=== PATIENT | female | born 1990 | race African-American/Black ===

== ENCOUNTER 2018-06-28 07:00 | Inpatient (IN) | payer OTHER ==
[2018-06-28] MEDS: ELECTROLYTE-148 SOLN 1,000 ML IV SCH (07:20)
[2018-06-28] MEDS ORDERED: AMPICILLIN SODIUM 2 GM VIAL ONE (07:43)
--- NOTE | 2018-06-28 08:16 | HP ---
Past Medical History - Admission Chief Complaint: SROM History of Present Illness: 27yo @ 38.5wks here with SROM @ 6AM, prior C/S, desires ERCS +LOF. +FM. No VB/ctx. Preg c/b 2 prior C/S, late and limited PNC History Source: Patient - Past Medical History ...EDC by Dates: 07/07/18 Heme/Onc: Yes: Anemia Infectious Disease: No: AIDS, C-Diff, Herpes Zoster, HIV, MRSA, STD's, Tuberculosis, VREF, Other Psych: No: Addictions, Anxiety, Bipolar, Depression, Panic, Psychosis, Schizophrenia, Other Musculoskeletal: No: Bursitis, Chronic low back pain, Hemiparesis, Hemiplegia, Osteoarthritis, Paraplegia, Other ENT: No: Allergic Rhinitis, Sinusitis, Other Endocrine: No: Wilton's Disease, Apex's Disease, Diabetes Insipidus, Diabetes Mellitus, Hyperparathyroidism, Hyperthyroidism, Hypothyroidism, Osteopenia, SIADH, Other Dermatology: No: Basal Cell, Cellulitis, Eczema, Melanoma, Psoriasis, Squamous Cell, Other - Past Surgical History Past Surgical History: Yes: Hx Myomectomy: No Hx Transabdominal Cerclage: No - Smoking History Smoking history: Never smoked Have you smoked in the past 12 months: No - Alcohol/Substance Use Hx Alcohol Use: No History of Substance Use: reports: None - Social History Usual Living Arrangement: Yes: With Spouse History of Recent Travel: No Home Medications - Allergies Allergies/Adverse Reactions: Allergies Allergy/AdvReac Type Severity Reaction Status Date / Time No Known Allergies Allergy Verified 06/28/18 08:41 - Home Medications Home Medications: Ambulatory Orders Vits96/Iron Fum/Folic [ Tablet] 1 tab PO DAILY 06/28/18 Review of Systems - Review of Systems Constitutional: denies: No Symptoms, Chills, Diaphoresis, Fever, Lethargy, Loss of Appetite, Malaise, Night Sweats, Unintentional Wgt. Loss, Weakness, Other Cardiovascular: denies: No Symptoms, Chest Pain, Edema, Palpitations, Shortness of Breath, Other Respiratory: denies: No Symptoms, Cough, Exercise Intolerance, Hemoptysis, Orthopnea, PND, Snoring, SOB, SOB on Exertion, Wheezing, Other Gastrointestinal: denies: No Symptoms, Abdominal Pain, Bloating, Constipation, Diarrhea, Dysphagia, Indigestion, Melena, Nausea, Rectal Bleeding, Vomiting, Vomiting Blood, Other Physical Exam - Maternity Constitutional: Yes: Well Nourished, No Distress, Calm Eyes: Yes: WNL, Conjunctiva Clear, EOM Intact HENT: Yes: WNL, Atraumatic, Normocephalic Neck: Yes: WNL, Supple, Trachea Midline Cardiovascular: Yes: WNL, Regular Rate and Rhythm Breast(s): Yes: WNL - Abdominal Exam/OB Number of Fetuses: Single Presentation: Vertex Contractions: Yes Regularity: Irregular Intensity: Mild Category: I Accelerations: Non-Uniform Decelerations: None - Vaginal Exam/OB Vaginal Bleediing: No Speculum Exam: No Dilatation (cm): 1 Effacement (%): 0 Amniotic Membrane Status: Ruptured Nitrazine Test: Positive Amniotic Fluid: Yes: Clear Presentation: Vertex/Position - Physical Exam Edema: No Problem List - Problems (1) SROM (spontaneous rupture of membranes) Code(s): KFN5250 - (2) H/O: Code(s): Z98.891 - HISTORY OF UTERINE SCAR FROM PREVIOUS SURGERY Assessment/Plan 27yo @ 38.5wks here with SROM, 2 prior C/S Admit to L&D NPO, IVFs Ancef SCDs Risk of bleeding, infection, injury to bladder/bowel/adnexa and vessels. Desires BTL. Consents signed Neda Mari MD
[2018-06-28 08:38] VITALS: BMI 30.9
[2018-06-28 08:40] LABS: BASO % 0.3 % (0-2.0); EOS % 0.7 % (0-4.5); HEMATOCRIT 32.5 % (32.4-45.2); HEMOGLOBIN 10.9 GM/dL (10.7-15.3); LYMPH % 26.1 % (8-40); MCH 29.9 pg (25.7-33.7); MCHC 33.6 g/dl (32.0-36.0); MEAN PLT VOLUME 9.3 fl (7.5-11.1); MONO % 11.4 % (3.8-10.2); NEUT % 61.5 % (42.8-82.8); PLATELET COUNT 146 K/MM3 (134-434); RBC 3.65 M/mm3 (3.60-5.2); RDW 15.8 % (11.6-15.6); WHITE BLOOD COUNT 4.9 K/mm3 (4.0-10.0)
[2018-06-28] MEDS: CITRIC ACID/SODIUM CITRATE 30 ML UNIT-DOSE CUP PO ONE ×2 (08:45→10:00)
[2018-06-28 09:04] LABS: INR 0.94 (0.83-1.09); PROTHROMBIN TIME (PATIENT) 11.1 SEC (9.7-13.0)
[2018-06-28 09:06] LABS: ACTIVATED PTT 29.9 SECONDS (25.2-36.5)
[2018-06-28 09:13] LABS: ANION GAP 7 MMOL/L (8-16); BLOOD UREA NITROGEN 6 mg/dL (7-18); CALCIUM 8.3 mg/dL (8.5-10.1); CHLORIDE 106 mmol/L (98-107); CO2 26 mmol/L (21-32); CREATININE 0.5 mg/dL (0.55-1.3); GLUCOSE,RANDOM 73 mg/dL (74-106); POTASSIUM 3.7 mmol/L (3.5-5.1); SODIUM 140 mmol/L (136-145)
[2018-06-28] MEDS ORDERED: morphine SULFATE/Preservative Free 0.5 MG/ML (1cc Syringe) EP ONE (09:34)
[2018-06-28] MEDS ORDERED: ONDANSETRON 4 MG/2 ML VIAL IVPUSH PRN (09:34)
[2018-06-28] MEDS ORDERED: morphine SULFATE/Preservative Free 0.5 MG/ML (1cc Syringe) ONE (10:28)
[2018-06-28] MEDS ORDERED: OXYTOCIN 20 UNITS in 0.9% NS 20 UNIT/1,000 ML INFUS.BAG IV ONE ×2 (10:29→13:30)
[2018-06-28] MEDS ORDERED: ceFAZolin SODIUM 1 GM VIAL ONE (10:29)
[2018-06-28] MEDS ORDERED: PHENYLEPHRINE HCL 10 MG/1 ML SINGLE DOSE VIAL ONE (10:49)
[2018-06-28] MEDS ORDERED: OXYTOCIN 10 UNITS/ML VIAL ONE (11:03)
--- NOTE | 2018-06-28 11:44 | OP ---
Operative Note - Note: Operative Date: 06/28/18 Pre-Operative Diagnosis: 38 week , Prior C/S, SROM, desires elective RLTCS, desires Permanent Sterilization Operation: Repeat Low Transverse , Bilateral Tubal Ligation Findings: VMI, cephalic, MCKENNA, no nuchal, no meconium. Weight 8.10lbs, Apgars 9/9. Normal tubes and ovaries Post-Operative Diagnosis: Same as Pre-op Surgeon: Kymberly Mari Rfid Analyst: Cheli Kwong Anesthesiologist/MASH FILTER PRESS OPERATOR: Luis Baltazar Anesthesia: Spinal Estimated Blood Loss (mls): 600 Drains, Volume Out (mls): 100 Operative Report Dictated: Yes
[2018-06-28] MEDS ORDERED: METHYLERGONOVINE MALEATE 0.2 MG/1 ML AMP IM PRN (11:45)
[2018-06-28] MEDS ORDERED: IBUPROFEN 800 MG/8 ML IJ IVPB PRN (11:45)
[2018-06-28] MEDS ORDERED: WITCH HAZEL 50% (TUCKS) 40 PAD/JAR PAD TP PRN (11:45)
--- NOTE | 2018-06-28 12:43 | SURG ---
Surgery Superintendent Landfill Operations Note Superintendent Landfill Operations: Cheli Kwong PA-C Date of Service: 06/28/18 Diagnosis: 38 week , Prior C/S, SROM, desires elective RLTCS, desires Permanent Sterilization Procedure: Repeat Low Transverse , Bilateral Tubal Ligation I was present for the entirety of the operative procedure. For further detail, please refer to operative report. Visit type - Case Type Case Type: Scheduled - Emergency Emergency Visit: Yes ED Registration Date: 06/28/18 Care time: The patient presented to the Emergency Department on the above date and was hospitalized for further evaluation of their emergent condition. - New patient This patient is new to me today: Yes Date on this admission: 06/28/18
[2018-06-28] MEDS: OXYTOCIN 20 UNITS in 0.9% NS 20 UNIT/1,000 ML INFUS.BAG IV SCH (13:45)
[2018-06-28 13:58] LABS: COCAINE, UR NEGATIVE ng/ml (CUTOFF=300); METHADONE, UR NEGATIVE ng/ml (CUTOFF=300); OPIATES, URI NEGATIVE ng/ml (CUTOFF=300); PHENCYCLIDINE,URINE NEGATIVE ng/ml (CUTOFF=25); URINE AMPHETAMINES NEGATIVE ng/ml (CUTOFF=500); URINE BARBITURATES NEGATIVE ng/ml (CUTOFF=200); URINE BENZODIAZEPINES NEGATIVE ng/ml (CUTOFF=200)
[2018-06-28] MEDS ORDERED: AMPICILLIN - 2 GM in SODIUM CHLORIDE 100 ML IVPB ONE (14:28)
--- NOTE | 2018-06-28 22:59 | OP ---
DATE OF OPERATION: 06/28/2018 PREOPERATIVE DIAGNOSES: [id number] , prior section, spontaneous rupture of membranes, desires elective repeat section, desires permanent sterilization. POSTOPERATIVE DIAGNOSES: [id number] , prior section, spontaneous rupture of membranes, desires elective repeat section, desires permanent sterilization. PROCEDURE: Repeat low transverse section, bilateral tubal ligation. SURGEON: Kymberly Mari MD DIAGRAMMER AND SEAMER: Cheli Kwong ANESTHESIA: Luis Baltazar MD ANESTHESIA TYPE: Spinal. ESTIMATED BLOOD LOSS: 600. INTRAVENOUS FLUIDS: Per Anesthesia record URINE OUTPUT: 100 mL of clear urine at the end of the procedure. FINDINGS: Viable male , cephalic presentation, MCKENNA. No nuchal, no meconium. Weight 8 pounds 10 ounces. Apgars 9, 9. Normal tubes and ovaries bilaterally. NATURE OF THE PROCEDURE: After the appropriate consents were signed, the patient was taken to the operating room, where spinal anesthesia was administered. She was prepped and draped in the normal sterile fashion. A Bain catheter had been inserted prior to entering into the operating room. Timeout was performed, confirming correct patient and procedure. A scalpel was used to make a Pfannenstiel incision near the patient's prior incision, which was noted to be keloided. The incision was carried through to the underlying layers until the fascia was nicked in the midline. The fascia was then extended laterally with the Lawson scissors. The inferior aspect of the fascia was grasped with the Elissa clamps, tented upwards, and the rectus muscles dissected off with the Lawson scissors. Attention was then paid to the superior aspect, which was tented upwards and the rectus muscles dissected off with a knife secondary to dense adhesions. The rectus muscles were grasped in the midline with the Allis clamps, tented upwards, and the rectus muscles in the midline with the scalpel. The peritoneum was then entered bluntly. There was insufficient space to accommodate delivery and the rectus muscles had to be incised in a Maylard fashion with the cautery device to accommodate delivery. The bladder blade was then inserted. The uterus was incised in a low-transverse fashion. Clear amniotic fluid was noted. The 's head was delivered without difficulty, as were the remaining shoulders and body. The cord was clamped and cut. The infant was handed off to the awaiting Pediatric Staff. The placenta was removed manually. The uterus was cleared of all clot and debris. The uterus was then exteriorized. The hysterotomy was closed in a single imbricating layer with a 1-0 Vicryl with good hemostasis. Attention was then paid to the adnexa for tubal sterilization. Using a Mary Lou, the patient's right fallopian tube was grasped at the isthmus portion and carried through to the fimbriated edges, which were noted to be normal. Back at the isthmus portion, the Mary Lou was replaced. Using a 0 plain, the fallopian tube was suture ligated in a modified Randal fashion. The tubal stump was removed with the Metzenbaum scissors. The tubal site was then cauterized with the Bovie with good hemostasis noted. Attention was then paid to the left fallopian tube, which was ligated in a similar fashion. The right fallopian tube was reinspected and noted to be hemostatic. The left fallopian tube stump was noted to have a small area of bleeding. This was made hemostatic with cautery and an additional 0 plain tie. An attempt was made to place the uterus back into the abdominal cavity; however, an area on the right fundal right area of the uterus was noted to be bleeding. Despite cautery, no hemostasis was achieved. Using additional 0 Vicryl sutures in several [id number], bleeding was made hemostatic. The uterus was then returned to the abdominal cavity. Both fallopian tube stumps were reinspected and noted to be hemostatic. The fundal portion of the uterus was also noted to be hemostatic. The hysterotomy was reinspected and noted to be hemostatic. The bladder blade was then removed. The fascia was closed with a 0 Vicryl. The subcutaneous tissue was closed with a 2-0 plain. The patient's keloid was then removed by grasping the keloid incision, elevating it, and cutting along the superior borders. The skin was then closed with a 4-0 Biosyn. Appropriate bandages were placed. All sponge, lap, needle counts were correct x3. The patient received Ancef at the start of the procedure. She was taken from the operating room to the recovery area in stable condition. MD MICHELLE MAYNARD/[id number]
[2018-06-28] MEDS: FERROUS SO4 325 MG TABLET (FP) PO SCH (23:18)
[2018-06-29 07:27] LABS: BASO % 0.3 % (0-2.0); EOS % 0.6 % (0-4.5); HEMATOCRIT 32.8 % (32.4-45.2); HEMOGLOBIN 11.1 GM/dL (10.7-15.3); LYMPH % 12.9 % (8-40); MCH 29.9 pg (25.7-33.7); MCHC 33.7 g/dl (32.0-36.0); MEAN CELL VOLUME 88.9 fl (80-96); MEAN PLT VOLUME 9.5 fl (7.5-11.1); MONO % 9.7 % (3.8-10.2); NEUT % 76.5 % (42.8-82.8); PLATELET COUNT 137 K/MM3 (134-434); RBC 3.69 M/mm3 (3.60-5.2); RDW 16.1 % (11.6-15.6); WHITE BLOOD COUNT 6.8 K/mm3 (4.0-10.0)
[2018-06-29] MEDS: FERROUS SO4 325 MG TABLET (FP) PO SCH ×2 (09:11→22:11)
[2018-06-29] MEDS: PRENATAL VITAMINS W/ FOLIC ACID TABLET (FP) PO SCH (09:12)
[2018-06-29] MEDS: ACETAMINOPHEN 325 MG TABLET (FP) PO PRN ×2 (11:05→19:45)
[2018-06-29] MEDS: IBUPROFEN 600 MG TABLET (FP) PO PRN ×2 (11:05→19:44)
[2018-06-29] MEDS ORDERED: BISACODYL 10 MG SUPP.RECT RC PRN (11:45)
--- NOTE | 2018-06-29 13:34 | PN ---
Progress Note (short form) - Note Progress Note: Anesthesia POD#1 S/P under Spinal A with Duramorph VSS,bearable pain,no N/V,legs are strong. Pat Colon MD.
--- NOTE | 2018-06-29 13:42 | PN ---
Post Progress Note - Subjective Subjective: sitting in the chair, comfortable Post Day: 1 Type of Delivery: Repeat C/S Vital Signs: Vital Signs Temperature 98.3 F 06/29/18 09:00 Pulse Rate 79 06/29/18 09:00 Respiratory Rate 20 06/29/18 13:00 Blood Pressure 113/67 06/29/18 09:00 O2 Sat by Pulse Oximetry (%) 100 06/28/18 13:00 Breast Exam: Yes: Soft Uterus: Yes: Fundus Firm Incision: Yes: Dressing dry and intact Abdomen/GI: Yes: Abdomen soft Lochia: Yes: Rubra Lochia, amount: Small Extremities: Yes: Calves non-tender Perineum: Yes: Intact - Labs Labs: CBC WBC 6.8 K/mm3 (4.0-10.0) 06/29/18 06:00 RBC 3.69 M/mm3 (3.60-5.2) 06/29/18 06:00 Hgb 11.1 GM/dL (10.7-15.3) 06/29/18 06:00 Hct 32.8 % (32.4-45.2) 06/29/18 06:00 MCV 88.9 fl (80-96) 06/29/18 06:00 MCH 29.9 pg (25.7-33.7) 06/29/18 06:00 MCHC 33.7 g/dl (32.0-36.0) 06/29/18 06:00 RDW 16.1 % (11.6-15.6) H 06/29/18 06:00 Plt Count 137 K/MM3 (134-434) 06/29/18 06:00 MPV 9.5 fl (7.5-11.1) 06/29/18 06:00 Absolute Neuts (auto) 5.2 K/mm3 (1.5-8.0) 06/29/18 06:00 Neutrophils % 76.5 % (42.8-82.8) D 06/29/18 06:00 Lymphocytes % 12.9 % (8-40) D 06/29/18 06:00 Monocytes % 9.7 % (3.8-10.2) 06/29/18 06:00 Eosinophils % 0.6 % (0-4.5) 06/29/18 06:00 Basophils % 0.3 % (0-2.0) 06/29/18 06:00 Nucleated RBC % 0 % (0-0) 06/29/18 06:00 Assessment/Plan oob reg diet pain control dc iv check labs
[2018-06-29] MEDS: SIMETHICONE 80 MG TAB.CHEW (FP) PO PRN (19:42)
[2018-06-29] MEDS: oxyCODONE HCL 5 MG TABLET PO PRN (19:43)
[2018-06-29] MEDS: SENNOSIDES/DOCUSATE COMBO (SENNA PLUS) TABLET (UD) PO PRN (22:12)
[2018-06-29] MEDS: ELECTROLYTE-148 SOLN 1,000 ML IV SCH (22:28)
[2018-06-29] MEDS: OXYTOCIN 20 UNITS in 0.9% NS 20 UNIT/1,000 ML INFUS.BAG IV SCH (22:28)
[2018-06-30] MEDS: oxyCODONE HCL 5 MG TABLET PO PRN ×3 (07:50→19:51)
[2018-06-30] MEDS: IBUPROFEN 600 MG TABLET (FP) PO PRN ×3 (07:50→19:52)
[2018-06-30] MEDS: SIMETHICONE 80 MG TAB.CHEW (FP) PO PRN ×2 (07:50→14:53)
[2018-06-30] MEDS: FERROUS SO4 325 MG TABLET (FP) PO SCH ×2 (09:43→21:09)
[2018-06-30] MEDS: PRENATAL VITAMINS W/ FOLIC ACID TABLET (FP) PO SCH (09:43)
[2018-06-30] MEDS: SENNOSIDES/DOCUSATE COMBO (SENNA PLUS) TABLET (UD) PO PRN (22:18)
[2018-07-01 07:48] LABS: BASO % 0.2 % (0-2.0); EOS % 1.4 % (0-4.5); HEMATOCRIT 27.9 % (32.4-45.2); HEMOGLOBIN 9.4 GM/dL (10.7-15.3); LYMPH % 24.8 % (8-40); MCH 29.8 pg (25.7-33.7); MCHC 33.5 g/dl (32.0-36.0); MEAN CELL VOLUME 88.8 fl (80-96); MEAN PLT VOLUME 9.5 fl (7.5-11.1); MONO % 9.5 % (3.8-10.2); NEUT % 64.1 % (42.8-82.8); PLATELET COUNT 156 K/MM3 (134-434); RBC 3.14 M/mm3 (3.60-5.2); RDW 15.7 % (11.6-15.6); WHITE BLOOD COUNT 5.5 K/mm3 (4.0-10.0)
--- NOTE | 2018-07-01 08:11 | DS ---
Physical Examination Vital Signs: Vital Signs Temperature 97.9 F 06/30/18 20:51 Pulse Rate 70 06/30/18 20:51 Respiratory Rate 19 06/30/18 20:51 Blood Pressure 114/69 06/30/18 20:51 O2 Sat by Pulse Oximetry (%) 100 06/30/18 20:51 Constitutional: Yes: Well Nourished, No Distress, Calm Eyes: Yes: WNL, Conjunctiva Clear, EOM Intact HENT: Yes: WNL, Atraumatic, Normocephalic Neck: Yes: WNL, Supple, Trachea Midline Cardiovascular: Yes: WNL, Regular Rate and Rhythm Respiratory: Yes: WNL, Regular, CTA Bilaterally Gastrointestinal: Yes: WNL, Normal Bowel Sounds Musculoskeletal: Yes: WNL Extremities: Yes: WNL Edema: No Integumentary: Yes: WNL Neurological: Yes: WNL, Alert, Oriented ...Motor Strength: WNL Psychiatric: Yes: WNL Labs: CBC, BMP 06/28/18 08:30 Discharge Summary Reason For Visit: LABOR Current Active Problems H/O: (Acute) SROM (spontaneous rupture of membranes) (Acute) Procedures: Principal: RLTCS, BTL Hospital Course: Patient presented with SROM at term She had a repeat and BTL Her course was unremarkable She met all milestones and was discharged home on POD#3 MEboni Mari MD Condition: Stable - Instructions Diet, Activity, Other Instructions: Regular Diet Referrals: Kymberly Mari MD [Staff Physician] - Disposition: HOME - Home Medications Comprehensive Discharge Medication List: Ambulatory Orders Vits96/Iron Fum/Folic [ Tablet] 1 tab PO DAILY 06/28/18 Ibuprofen [Motrin -] 600 mg PO QID PRN #28 tablet 06/30/18
[2018-07-01] MEDS: IBUPROFEN 600 MG TABLET (FP) PO PRN (09:49)
[2018-07-01] MEDS: PRENATAL VITAMINS W/ FOLIC ACID TABLET (FP) PO SCH (09:54)
[2018-07-01] MEDS: FERROUS SO4 325 MG TABLET (FP) PO SCH (09:54)
[2018-07-01] MEDS: oxyCODONE HCL 5 MG TABLET PO PRN (09:54)
[2018-07-01 10:15] VITALS: BP 109/71; PULSE 91; TEMP 98.6
--- NOTE | 2018-07-01 17:52 | PATH ---
Surgical Pathology Report Patient Name: JIGNESH SUAREZ [facility]. Rec. #: [id number] /Age/Gender: 1990 (Age: 27) / F Account: [id number] Location: [facility] OBS/CHEMISTRY TECHNOLOGIST Taken: 06/28/2018 Received: 06/29/2018 Reported: 07/01/2018 Physicians: Kymberly Mari Specimen(s) Received A: PLACENTA B: RIGHT FALLOPIAN TUBE C: LEFT FALLOPIAN TUBE Clinical History Gestation 39.2, previous x2, history of asthma Final Diagnosis A. PLACENTA, SECTION: 555 G THIRD TRIMESTER PLACENTA WITH TRIVASCULAR UMBILICAL CORD AND UNREMARKABLE PLACENTAL MEMBRANES. B. FALLOPIAN TUBE, RIGHT, PARTIAL EXCISION: FULL LUMINAL PORTION OF UNREMARKABLE FALLOPIAN TUBE. C. FALLOPIAN TUBE, LEFT, PARTIAL EXCISION: FULL LUMINAL PORTION OF UNREMARKABLE FALLOPIAN TUBE. Electronically Signed Sammi Antonio M.D. Gross Description A. The specimen is received fresh labeled placenta and is a 555 gram, 24.0 x 13.5 x 2.4 cm. placenta with attached membranes and umbilical cord. The attached membranes are cazares, translucent with focal opacities and insert marginally. The umbilical cord measures 46 cm. in length and averages 1.0 cm. in diameter. The cord inserts eccentrically, 5 cm. to the nearest margin. No true knots or strictures are identified. Cut surface of the umbilical cord reveals 3 vessels. The surface is ying-blue with minimal fibrin deposition and appropriate caliber vessels. The maternal surface is red-brown with focal defects. Sectioning reveals red-brown, spongy parenchyma. No lesions are identified. Power Reactor Supervisor sections are submitted in three cassettes as follows: 1- membrane rolls and umbilical cord; 2-3- full thickness sections of placenta. B. Received in formalin labeled "right tube fallopian," is a 1.5 cm in length portion of fallopian tube. No fimbria are present. The outer surface is cazares-garcia and smooth. Sectioning reveals an unremarkable lumen. Power Reactor Supervisor sections are submitted in one cassette. C. Received in formalin labeled "left tube fallopian," is a 0.7 cm in length portion of fallopian tube. No fimbria are present. The outer surface is cazares ying and smooth. Sectioning reveals an unremarkable lumen. The specimen is bisected and entirely submitted in one cassette. DL/06/30/2018 saudi06/30/2018
== END 2018-07-01 15:10 | disposition home or self-care (01) | DRG 540 ==
LOC: JLDR 07:00 → J3W 14:24
PROVIDERS: ADMIT Obstetrics & Gynecology; ATTEND Obstetrics & Gynecology
PROC: 10D00Z1 Extraction of Products of Conception, Low, Open Approach (ICD-10-PCS; principal; 2018-06-28)
PROC: 0U570ZZ Destruction of Bilateral Fallopian Tubes, Open Approach (ICD-10-PCS; 2018-06-28)
DX: O34.219 Maternal care for unspecified type scar from previous cesarean delivery (principal); Z3A.38 38 weeks gestation of pregnancy; Z37.0 Single live birth; Z30.2 Encounter for sterilization
CPT/HCPCS: 36415; 80048; 80307; 85025; 85610; 85730; 86593; 86850; 86900; 86901; 88302-TC; 88307-TC